=== PATIENT | male | born 2000 | race Caucasian/White ===

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

== ENCOUNTER 2021-03-29 22:22 | Emergency (ER) | payer MEDICAID ==
[~2021-03-29] VITALS: Ht 182.9 cm; Wt 122.5 kg
[~2021-03-29 22:22] MED LIST: IBUP-2213 PO
[2021-03-29 22:25] VITALS: BP 150/77
--- NOTE | 2021-03-29 22:25 | NUR ---
to bed via w/c
--- NOTE | 2021-03-29 22:53 | NUR ---
Dr. Molina examining patient.
[2021-03-29] MEDS ORDERED: KETOROLAC 60 MG/2 ML VIAL IM ONE (23:05)
[2021-03-29] MEDS ORDERED: LIDOCAINE MPF 1% 10 MG/ML VIAL INJ ONE (23:15)
[2021-03-30] MEDS ORDERED: IBUP-2213 PO (00:26)
[2021-03-30] MEDS ORDERED: ACET-8386 PO (00:26)
[2021-03-30 00:46] VITALS: BP 150/77
--- NOTE | 2021-03-30 00:46 | NUR ---
Patient discharged with v/s stable. Written and verbal after care instructions given and explained. Patient alert, oriented and verbalized understanding of instructions. Ambulatory with steady gait. All questions addressed prior to discharge. ID band removed. Patient advised to follow up with PMD. Rx of ibuprofen and hydrocodon-acetaminophen 5-325 given. Patient educated on indication of medication including possible reaction and side effects. Opportunity to ask questions provided and answered.
== END 2021-03-30 00:46 | disposition home or self-care (01) ==
LOC: MED 22:22
DX: S31.21XA Laceration without foreign body of penis, initial encounter (principal); Z79.1 Long term (current) use of non-steroidal anti-inflammatories (NSAID); X58.XXXA Exposure to other specified factors, initial encounter; Y92.89 Other specified places as the place of occurrence of the external cause; Y93.89 Activity, other specified; Y99.8 Other external cause status
CPT/HCPCS: 12001; 81002; 96372; 99283; J1885; J2001